=== PATIENT | female | born 1985 | race Caucasian/White ===

== ENCOUNTER 2019-11-25 09:11 | Emergency (ER) | payer BC, SELFPAY ==
--- NOTE | 2019-11-25 09:22 | ED.URI ---
HPI - URI/Sore Throat General Chief Complaint: Upper Respiratory Infection Stated Complaint: dixon/fever/chills/cough Time Seen by Provider: 11/25/19 09:23 Source: patient and RN notes reviewed History of Present Illness HPI Narrative: Patient is a 34-year-old female that presents the urgent care with complaints of headache, fever, chills, nonproductive cough. Patient states that her daughter is positive for influenza B and was diagnosed Tuesday. Patient states that her symptoms started last night. Patient has been using ibuprofen with last dose at 8 AM. No other acute complaints. No acute distress noted. Patient read the plan of care. Related Data Allergies Allergy/AdvReac Type Severity Reaction Status Date / Time No Known Allergies Allergy Unverified 11/25/19 09:24 Review of Systems Review of Systems: Narrative: CONSTITUTIONAL: Reports a fever, chills EYES: Denies visual changes, redness, or discharge. ENT: Reports of rhinorrhea and congestion CARDIOVASCULAR: Denies chest pain, palpitations, or edema. RESPIRATORY: Reports of nonproductive cough without dyspnea GASTROINTESTINAL: Denies abdominal pain, nausea, vomiting, or diarrhea. GENITOURINARY: Denies dysuria or hematuria. SKIN: Denies rash or itching. MUSCULOSKELETAL: Denies back pain, joint pain, or myalgia. NEUROLOGIC: Reports of headache All other systems reviewed are negative, except as documented in HPI. PMFSH Comments At the time of my signature, I reviewed and agree with the nursing past medical, surgical, social, and family history. There is no relevant family history pertinent to the patient complaint. Exam Narrative: Exam Narrative: GENERAL: This is a well-nourished, well-developed patient, appears slightly fatigued HEAD: normocephalic, atraumatic. EYES: PERRL. Sclera clear/white. Vision is grossly intact. EARS: External ears normal, auditory canals clear and without drainage, TMs normal without perforation. Hearing grossly intact. NOSE: External nose normal with no obvious nasal discharge, bilateral erythemic nares with clear to yellow rhinorrhea. THROAT: Mucous membranes moist, posterior pharynx clear. Mild postnasal drainage NECK: Neck supple, non-tender without lymphadenopathy, masses or thyromegaly. CARDIOVASCULAR: Regular rate and rhythm without murmurs, gallops, or rubs. RESPIRATORY: Clear to auscultation. Breath sounds equal bilaterally. No wheezes, rales, or rhonchi. SKIN: warm, intact with no suspicious lesions or rash, good texture and turgor. NEURO: awake, alert, and oriented to person, place and time. There were no obvious focal neurologic abnormalities. EXTREMITIES: No clubbing, cyanosis, or edema. Course Vital Signs Vital signs: Vital Signs Temperature 101.3 F H 11/25/19 09:25 Pulse Rate 98 11/25/19 09:25 Respiratory Rate 16 11/25/19 09:25 Blood Pressure 108/62 11/25/19 09:25 Pulse Oximetry 98 11/25/19 09:25 Temperature 101.3 F H 11/25/19 09:25 Pulse Rate 98 11/25/19 09:25 Respiratory Rate 16 11/25/19 09:25 Blood Pressure 108/62 11/25/19 09:25 Pulse Oximetry 98 11/25/19 09:25 Reviewed MDM - URI/Sore Throat MDM Narrative Medical decision making narrative: Reviewed lab results with the patient. She is aware that influenza swab was negative. However, with patient's daughter being positive for the flu and her having like symptoms with fever, patient would like to be treated. Advised her to complete the Xofluza as directed. Make sure to eat and drink with the medication. Treat symptoms with [id number] medication such as Robitussin/Delsym for cough, Claritin for allergy-like symptoms, Flonase for nasal congestion, Tylenol/Motrin for fever/body aches. Increase fluids, especially water and rest. Use a humidifier. Be aware of symptoms of dehydration such as lethargy, confusion, increased weakness, dry lips, dry eyes. Follow-up with PCP within 2-5 days or for worsening symptoms or failure to improve. Areli
[2019-11-25 09:25] VITALS: BP 108/62; PULSE 98; RESP 16; TEMP 38.5; O2SAT 98
== END 2019-11-25 09:55 | disposition home or self-care (01) ==
PROVIDERS: Emergency Provider Nurse Practitioner Family; PCP Physician Assistant
DX: J11.1 Influenza due to unidentified influenza virus with other respiratory manifestations (principal)
CPT/HCPCS: 87804; 99213; G0463

== ENCOUNTER 2025-02-14 12:59 | Outpatient (CLI) | payer OTHER, SELFPAY ==
--- NOTE | ~2025-02-14 | MM_ITS ---
EXAMINATION: MM screening nathanael BI w jose alejandro HISTORY: Screening TECHNIQUE: Craniocaudal and mediolateral oblique 3-D tomosynthesis images were obtained and synthetic 2-D images were generated. CAD analysis was submitted and interpreted. COMPARISON: No prior mammogram is available for comparison at this institution. BREAST PARENCHYMAL COMPOSITION: Dense: The breasts are extremely dense, which lowers the sensitivity of mammography. FINDINGS: There is no evidence of suspicious mass, calcification, or architectural distortion to sugg est malignancy in either breast. There has been no suspicious interval change. IMPRESSION: 1. No mammographic evidence of malignancy. 2. Recommend routine screening mammography in one year. BI-RADS Category 1: Negative Reviewed, dictated and finalized at location A.
--- OUTSIDE RECORDS SUMMARY | 2025-02-14 13:07 | XMS_ITS | Clinical Summary ---
Author Organization [facility] Address [address] [place] [phone] Care Team Providers Care Blueprint Engineer Name Role Phone Chela Hull Primary Care Provider [phone] Allergies No known active allergies Medications buPROPion XL (WELLBUTRIN XL) 150 mg 24 hr tablet 01/04/2023 Active Active Problems No known active problems Social History Tobacco Use Types Packs/Day Years Used Date Smoking Tobacco: Never Assessed Comments Unknown Sex and Gender Information Value Date Recorded Sex Assigned at Not on file Legal Sex Female 3:48 PM CDT Gender Identity Not on file Sexual Orientation Not on file Obstetrics History Last Filed Vital Signs Vital Sign Reading Time Taken Comments Blood Pressure 110/76 10/10/2023 11:57 AM MAKING MACHINE OPERATOR Pulse 77 10/10/2023 11:57 AM MAKING MACHINE OPERATOR Temperature 36.8 C (98.2 F) 10/10/2023 11:57 AM MAKING MACHINE OPERATOR Respiratory Rate 16 10/10/2023 11:57 AM MAKING MACHINE OPERATOR Oxygen Saturation 98% 10/10/2023 11:57 AM MAKING MACHINE OPERATOR Inhaled Oxygen Concentration - - Weight 64 kg (141 lb 3.2 oz) 10/10/2023 11:57 AM MAKING MACHINE OPERATOR Height 162.6 cm (5' 4.02 ) 10/10/2023 11:[address] Body Mass Index 24.22 10/10/2023 11:57 AM MAKING MACHINE OPERATOR Plan of Treatment Health Maintenance Due Date Last Done Comments Breast Cancer Screening-Mammogram 1984 Cervical Cancer Screening 1984 Depression Screening 1984 Hepatitis C Screening 1984 Varicella Vaccines (1 of 2 - 13+ 2-dose series) 1997 Hepatitis B Screening 2002 Regular Well Visit/Exam 18-64 2002 Covid-19 Vaccine ( season) 2024 08/02/2022, 11/13/2020, 10/24/2020 Influenza Vaccine (Season Ended) 2025 08/02/2022, 08/02/2022, 07/17/2021, Additional history exists DTaP/Tdap/Td Vaccine (3 - Td or Tdap) 03/28/2026 03/28/2016, 09/11/2013 HPV Vaccines Aged Out No longer eligi ble based on patient's age to complete this topic Pneumococcal vaccine <65 Aged Out No longer eligible based on patient's age to complete this topic Insurance [employer] HMO/PPO Address: [address] [address] [employer]/PPO Address: [facility] [address] [place] [address] Care Teams Blueprint Engineer Relationship Specialty [place] [address] [place] [address] PCP - General Physician Social Media Assistant 02/15/23
--- OUTSIDE RECORDS SUMMARY | 2025-02-14 13:07 | XMS_ITS | Clinical Summary ---
Author Organization [facility] [employer] Address [address] [place] [address] Care Team Providers Care Mechanical Fitter Name Role Phone Unavailable Primary Care Provider Unavailabl e Source Comments [facility] [employer],non-owned Affiliates and Associated Physician Practices is amultiple site organization consisting of ambulatory clinics and hospital sitesin [place], [place], [place] and [place]. This disclosure is being madepursuant to the Care Everywhere program and may not contain all information available regarding this patient. Last updated 18.[facility] [employer] Allergies No known active allergies Medications * Be aware that medications may not be up to date on this document. Alwaysverify current medications with the patient. BuPROPion HCl (WELLBUTRIN PO) Acti ve Social History Tobacco Use Types Packs/Day Years Used Date Smoking Tobacco: Former Smokeless Tobacco: Never Comments No Sex and Gender Information Value Date Recorded Sex Assigned at Not on file Legal Sex Female 7:53 AM CDT Gender Identity Not on file Sexual Orientation Not on file Last Filed Vital Signs Vital Sign Reading Time Taken Comments Blood Pressure 112/68 06/09/2018 10:36 AM CDT Pulse 84 06/09/2018 10:36 AM CDT Temperature 36.9 C (98.4 F) 06/09/2018 10:36 AM CDT Respiratory Rate 16 06/09/2018 10:36 AM CDT Oxygen Saturation 99% 06/09/2018 10:36 AM CDT Inhaled Oxygen Concentration - - Weight 61.2 kg (135 lb) 06/09/2018 10:36 AM CDT Height 157.5 cm (5' 2 ) 06/09/2018 10:36 AM CDT Body Mass Index 24.69 06/09/2018 10:36 AM CDT Plan of Treatment Health Maintenance Due Date Last Done Comments LIPID TESTING 1984 MAMMOGRAM 1984 HIV SCREENING 1999 HEPATITIS C SCREENING 10/25/2002 DTAP/TDAP/TD VACCINES (1 - Tdap) 2003 HEPATITIS B VACCINE (1 of 3 - 19+ 3-dose series) 2003 COVID-19 VACCINE (1 - 2023-2 5 season) 2024 DEPRESSION SCREENING 10/03/2024 INFLUENZA VACCINE (Season Ended) 2025 ZOSTER VACCINE (1 of 2) 2034 HIB VACCINE Aged Out No longer eligi ble based on patient's age to complete this topic HPV VACCINE Aged Out No longer eligi ble based on patient's age to complete this topic MENINGOCOCCAL (Group B) VACC INE SHARED DECISION-MAKING Aged Out No longer eligibl e based on patient's age to complete this topic MENINGOCOCCAL GROUPS A/C/Y/W VACCINE Aged Out No longer eligible b ased on patient's age to complete this topic PNEUMOCOCCAL VACCINE Aged Out No long er eligible based on patient's age to complete this topic Insurance
--- OUTSIDE RECORDS SUMMARY | 2025-02-14 13:07 | XMS_ITS | Encounter Summary ---
Author Organization [facility] Address [address] [place] [id number] Care Team Providers Care Forest Fire Management Officer Name Role Phone Chela Hull Primary Care Provider [phone] Encounter Details Date Type Department Care Team (Latest Contact Info) Description 01/21/2025 Results Follow-Up [facility] [id number] [place] [phone] [place] [id number] [place] [id number] CBC W/DIFF AUTOMATED, TSH W/REFLEX, COMPREHENSIVE METABOLIC PANEL, Additional followed-up results: 2 Social History Tobacco Use Types Packs/Day Years Used Date Smoking Tobacco: Former Cigarettes 0.5 5 0 01/18/2013 - 01/18/2018 Passive Smoke Exposure: Never Smokeless Tobacco: Never Alcohol Use Standard Drinks/Week Comments Yes 3.3 (1 standard drink = 0.6 oz p ure alcohol) Socially PHQ-2 Answer Date Recorded Patient Health Questionnaire-2 Score 0 01/17/2025 Comments No Sex and Gender Information Value Date Recorded Sex Assigned at Female 01/17/2025 8:24 AM CDT Legal Sex Female 8:55 AM GENERATOR REPAIRER Gender Identity Not on file Sexual Orientation Not on file documented as of this encounter Plan of Treatment Not on file documented as of this encounter Visit Diagnoses Not on filedocumented in this encounter Additional Health Concerns Assessment Noted Time PHQ-9 Depression Total Score: 0 04/13/20 21 9:39 AM CDT documented as of this encounter Care Teams Forest Fire Management Officer Relationship Specialty [place] [address] [place] [address] PCP - General PHYSICIAN KINESIOTHERAPIST 11/23/19 documented as of this encounter
--- OUTSIDE RECORDS SUMMARY | 2025-02-14 13:07 | XMS_ITS | Referral Summary ---
Author Organization [facility] Address [address] [place] [phone] Care Team Providers Care Flame Cutting Supervisor Name Role Phone Chela Hull Primary Care Provider [phone] Allergies No known active allergies Medications buPROPion [...] Comments Blood Pressure 110/76 10/10/2023 11:57 AM SENIOR STRATEGY ANALYST Pulse 77 10/10/2023 11:57 AM SENIOR STRATEGY ANALYST Temperature 36.8 C (98.2 F) 10/10/2023 11:57 AM SENIOR STRATEGY ANALYST Respiratory Rate 16 10/10/2023 11:57 AM SENIOR STRATEGY ANALYST Oxygen Saturation 98% 10/10/2023 11:57 AM SENIOR STRATEGY ANALYST Inhaled Oxygen Concentration - - Weight 64 kg (141 lb 3.2 oz) 10/10/2023 11:57 AM SENIOR STRATEGY ANALYST Height 162.6 cm (5' 4.02 ) 10/10/2023 11:[address] Body Mass Index 24.22 10/10/2023 11:57 AM SENIOR STRATEGY ANALYST Plan of Treatment Not on file Insurance [facility] [employer] [facility] [employer] H[employer]/PPO Address: [address] [facility] [employer]O Address: [place] [phone] Care Teams Flame Cutting Supervisor Relationship Specialty [place] [address] [address] PCP - General Physician Classification Clerk 02/15/23
--- OUTSIDE RECORDS SUMMARY | 2025-02-14 13:07 | XMS_ITS | Clinical Summary ---
Author Organization [facility] Address [address] [place] [address] Care Team Providers Care Water Filtration Technician Name Role Phone Chela Hull Primary Care Provider [phone] Allergies No known active allergies Medications fluconazole (DIFLUCAN) 150 MG tabletIndicati ons:Yeast infection Take one now and one in a week 2 tablet 4 01/18/20 25 Discontinued(T herapy completed) buPROPion XL (WELLBUTRIN XL) 150 MG 24 hr tabletIndicati ons:Anxiety Take 1 tablet (150 mg total) by mouth daily. 90 tablet 4 01/18/20 25 Discontinued(P t. elected to discontinue med) Active Problems No known active problems Encounters Date Type Department Care Team Description 01/21/2025 Results Follow-Up [facility] [address] [address] Chela Hull, PA CBC W/DIFF AUTOMATED, TSH W/REFLEX, COMPREHENSIVE METABOLIC PANEL, Additional followed-up results: 2 01/17/2025 9:40 AM CDT Laboratory Only [facility] [address] [address] Chela Hull PA 01/17/2025 9:00 AM CDT Office Visit [facility] [address] [address] Chela Hull, PA Printing Roller Polisher Exam 01/17/2025 Travel from Last 3 Months Immunizations Immunization Administration Dates Next Due Influenza (Generic) 07/17/2021 Influenza Adult (Generic) 08/02/2022,08/01/2020, 08/03/2013 Tdap (Generic) 03/28/2016,09/11/2013 Family History Medical History Relation Comments No Known Problems Father Breast Cancer Maternal Aunt No Known Problems Mother Relation Status Comments Father Alive Maternal Aunt Mother Alive Social History Tobacco Use Types Packs/Day Years Used Date Smoking Tobacco: Former Cigarettes 0.5 5 0 01/18/2013 - 01/18/2018 Passive Smoke Exposure: Never Smokeless Tobacco: Never Tobacco Cessation:Counseling Given: No Alcohol Use Standard Drinks/Week Comments Yes 3.3 (1 standard drink = 0.6 oz p ure alcohol) Socially PHQ-2 Answer Date Recorded Patient Health Questionnaire-2 Score 0 01/17/2025 Comments No Sex and Gender Information Value Date Recorded Sex Assigned at Female 01/17/2025 8:24 AM CDT Legal Sex Female 8:55 AM FELT HAT MELLOWING MACHINE OPERATOR Gender Identity Not on file Sexual Orientation Not on file Last Filed Vital Signs Vital Sign Reading Time Taken Comments Blood Pressure 127/79 01/17/2025 8:27 AM CDT Pulse 82 01/17/2025 8:27 AM CDT Temperature 36.7 C (98 F) 01/17/2025 8:27 AM CDT Respiratory Rate 16 01/17/2025 8:27 AM CDT Oxygen Saturation 100% 01/17/2025 8:27 AM CDT Inhaled Oxygen Concentration - - Weight 64 kg (141 lb) 01/17/2025 8:27 AM CDT Height 160 cm (5' 3 ) 01/17/2025 8:27 AM CDT Body Mass Index 24.98 01/17/2025 8:27 AM CDT Plan of Treatment Health Maintenance Due Date Last Done Comments Hepatitis B Vaccines (1 of 3 - 19+ 3-dose series) 2003 COVID-19 Vaccine (2 - season) 2024 08/02/2022 Mammogram Screening 2024 Annual Physical 01/17/2026 01/17/2025, 04/01/2023, 04/13/2021, Additional history exists DTaP, Tdap and Td Vaccines (3 - Td or Tdap) 03/28/2026 03/28/2016, 09/11/2013 Cervical Cancer Screening Pap Smear (Age 30 to 64) Every 3 Years 01/18/2028 01/17/2025, 01/04/2023, 04/13/2021, Additional history exists Cervical Cancer Screening Pap with HPV Testing (Age 30 to 64) Every 5 Years 01/17/2030 01/17/2025, 01/04/2023, 04/13/2021 Cervical Cancer Screening with HPV 01/17/2030 Hepatitis C 01/04/2053 Postponed from 2002 (Patient Refused) PHQ-2 (Physician Carmine) Completed 01/17/2025 HPV Vaccines Aged Out No longer eligi ble based on patient's age to complete this topic Meningococcal B Vaccine Aged Out No l onger eligible based on patient's age to complete this topic Meningococcal Vaccine Aged Out No maryuri smita eligible based on patient's age to complete this topic Pneumococcal Vaccine: Pediatrics (0 to 5 Years) and At-Risk Patients (6 to 49 Years) Aged Out No longer eligible based on patient's age to complete this topic RSV Immunizations Under 20 Months Aged Out No longer eligible based on patient's age to complete this topic Procedures Procedure Name Priority Date/Time Associated Diagnosis Comments THINPREP PAP W AGE BASED SCREENING PROTOCOLS Routine 01/17/2025 9:10 AM CDT Cervical cancer screening COLLECTION VENOUS BLOOD VENIPUNCTURE Routine 01/17/2025 9:07 AM CDT Routine general medical examination at a health care facility LIPID PANEL Routine 01/17/2025 9:06 AM CDT Routine general medical examination at a health care facility COMPREHENSIVE METABOLIC PANEL Routine 01/17/2025 9:06 AM CDT Routine general medical examination at a health care facility TSH W/REFLEX Routine 01/17/2025 9:06 AM CDT Routine general medical examination at a health care facility CBC W/DIFF AUTOMATED Routine 01/17/2025 9:06 AM CDT Routine general medical examination at a health care facility from Last 3 Months Results * THINPREP PAP W AGE BASED SCREENING ([facility] ONLY) (01/17/2025 9:10 AM CDT) Comment: [facility] [employer] Comment: This order for age-based cervical cancer and STI screening follows ACOG guidelines(PB 168, 140, LTR868). See individual assays for performing site location. CLINICAL INFORMATION: UNK [facility] [employer] Clinical Information: NO MENSES DUE TO IUD [facility] [employer] [facility] Date of Last Pap NONE GIVEN QU [facility] Previous Biopsy? NONE GIVEN [employer] [employer] SOURCE (QST) Cervix [facility] [employer] [facility] STATEMENT OF ADEQUACY: [facility] [employer] Comment: Satisfactory for evaluation. Endocervical/transformation zone component absent. PAP INTERPRETATION/RES ULTS Cytology Results: Negative for intraepithelial lesion or malignancy. [place] COMMENT: This Pap test has been evaluated with computer assisted technology. [place], [place] LEGAL CONTRACTS SPECIALIST [facility] [place] Comment: MVB, CT(ASCP) CT Screening Location: [place] [address] [place] [address] COMMENT: [facility] [employer] Comment: EXPLANATORY NOTE: The Pap is a screening test for cervical cancer. It is not a diagnostic test and is subject to false negative and false positive results. It is most reliable when a satisfactory sample, regularly obtained, is submitted with relevant clinical findings and history, and when the Pap result is evaluated along with historic and current clinical information. HPV MRNA E6/E7 Not Detected Not Detected [facility] Comment: Methodology: Material Stress Tester-Mediated Amplification This assay detects E6/E7 viral messenger RNA (mRNA) from 14 high-risk HPV types (16,18,31,33,35,39,45,51,52,56,58,59,66,68). Cervical sources are required for HPV testing. If a vaginal source from a patient who has had a total hysterectomy with removal of cervix was submitted, please contact the testing laboratory for alternative testing options. For additional information, please refer to http://education.STORYS.JP/faq/SYO698c2 (This link if provided for information/ educational purposes only.) 01/17/2025 9:10 AM CDT 01/18/2025 8:42 PM CDT Narrative Resulting Agency Comment Performing Organization Information: Site ID: [place] Name: [facility] Address: [address] [place] [id number] Director: Lucien Camara Site ID: [id number] [facility]: [facility] Address: [address] [place] [address] [place] [address] Director: Esa Watson Chela SEP[facility] PATHOLOGY/CYTOLOGY ORDERABLE S Final Result [facility] [address], [facility] [address] [address], [place] * TSH W/REFLEX (01/17/2025 9:06 AM CDT) TSH 0.94 mIU/L [facility] [employer] [facility] Comment: Reference Range > or = 20 Years 0.40-4.50 Ranges First trimester 0.26-2.66 Second trimester 0.55-2.73 Third trimester 0.43-2.91 01/17/2025 9:06 AM CDT 01/18/2025 3:14 AM CDT Narrative Resulting Agency Comment Performing Organization Information: Site ID: [place] Name: [facility] Address: [address] [place] [address] Director: Esa Watson Cehla [facility] Final Result [facility] [place] [place] [id number] [place] [id number], [place] * COMPREHENSIVE METABOLIC PANEL (01/17/2025 9:06 AM CDT) GLUCOSE 85 65 - 99 mg/dL [facility] [employer] [facility] Comment: Fasting reference interval BUN 12 7 - 25 mg/dL [facility] [employer] [facility] CREATININE S/P/B 0.78 0.50 - 0.99 mg/dL [place] GFR ESTIMATE 98 > OR = 60 mL/min/1. 73m2 [place] BUN CREATININE RATIO SEE NOTE: 6 - 22 (calc) [place] Comment: Not Reported: BUN and Creatinine are within reference range. SODIUM S/P/B 139 135 - 146 mmol/L [place] POTASSIUM S/P/B 4.5 3.5 - 5.3 mmol/L [place] CHLORIDE S/P/B 105 98 - 110 mmol/L [place] CO2 25 20 - 32 mmol/L [place] CALCIUM S/P/B 9.4 8.6 - 10.2 mg/dL [place] TOTAL PROTEIN S/P/B 7.2 6.1 - 8.1 g/dL [place] ALBUMIN S/P/B 4.7 3.6 - 5.1 g/dL [place] GLOBULIN 2.5 1.9 - 3.7 g/dL (calc) [place] ALBUMIN/GLOBULIN RATIO 1.9 1.0 - 2.5 (calc) [place] BILIRUBIN TOTAL S/P/B 0.5 0.2 - 1.2 mg/dL [place] ALKALINE PHOSPHATASE S/P/B 43 31 - 125 U/L [place] AST 15 10 - 30 U/L [place] ALT 16 6 - 29 U/L [place] 01/17/2025 9:06 AM CDT 01/18/2025 3:14 AM CDT Narrative Resulting Agency Comment Performing Organization Information: Site ID: [place] Name: [facility] Address: [address] [place] [address] Director: Esa Watson Chela [facility] Final Result [facility] [employer] [facility] - [place] [address], * (ABNORMAL) LIPID PANEL (01/17/2025 9:06 AM CDT) Pathologist [facility] CHOLESTEROL 203(H) <200 mg/dL [place] HDL 71 > OR = 50 mg/dL [place] TRIGLYCERIDES 67 <150 mg/dL [place] LDL (CALCULATED) 116(H) mg/dL (calc) [place] Comment: Reference range: <100 Desirable range <100 mg/dL for primary prevention; <70 mg/dL for patients with CHD or diabetic patients with > or = 2 CHD risk factors. LDL-C is now calculated using the Vaishnavi calculation, which is a validated novel method providing better accuracy than the Friedewald equation in the estimation of LDL-C. Flynn CAMACHO et al. SASHA. 2013;310(19): 7399-4180 (http://education.Kaboo Cloud Camera/faq/GQS913) CHOL/HDL RATIO 2.9 <5.0 (calc) [place] NON HDL CHOLESTEROL 132(H) <130 mg/dL (calc) [place] Comment: For patients with diabetes plus 1 major ASCVD risk factor, treating to a non-HDL-C goal of <100 mg/dL (LDL-C of <70 mg/dL) is considered a therapeutic option. 01/17/2025 9:06 AM CDT 01/18/2025 3:14 AM CDT Narrative Resulting Agency Comment Performing Organization Information: Site ID: [place] Name: [facility] Address: [address] [place] [address] [place] [address] Director: Esa Watson Chela [facility] Final Result [facility] - [place] [address], * (ABNORMAL) CBC W/DIFF AUTOMATED (01/17/2025 9:06 AM CDT) [facility] WBC 6.9 3.8 - 10.8 Thousand/u L [place] RBC 5.09 3.80 - 5.10 Million/uL [place] HGB 14.0 11.7 - 15.5 g/dL [place] HCT 45.3(H) 35.0 - 45.0 % [place] MCV 89.0 80.0 - 100.0 fL [place] MCH 27.5 27.0 - 33.0 pg [place] MCHC 30.9(L) 32.0 - 36.0 g/dL [place] Comment: For adults, a slight decrease in the calculated MCHC value (in the range of 30 to 32 g/dL) is most likely not clinically significant; however, it should be interpreted with caution in correlation with other red cell parameters and the patient's clinical condition. RDW 11.8 11.0 - 15.0 % [place] PLT 265 140 - 400 Thousand/u L [place] MPV 10.5 7.5 - 12.5 fL [place] ABS. NEUTROPHILS 3,802 1,500 - 7,800 cells/uL [place] ABS. LYMPHOCYTES 2,512 850 - 3,900 cells/uL [place] ABS. MONOCYTES 442 200 - 950 cells/uL [place] ABS. EOSINOPHILS 104 15 - 500 cells/uL [place] ABS. BASOPHILS 41 0 - 200 cells/uL [place] SEG NEUTROPHILS 55.1 % [facility] [place] [facility] LYMPHOCYTES 36.4 % [place] MONOCYTES 6.4 % [place] EOSINOPHILS 1.5 % [place] BASOPHILS 0.6 % [place] 01/17/2025 9:06 AM CDT 01/18/2025 3:14 AM CDT Narrative Resulting Agency Comment Performing Organization Information: Site ID: [id number] Name: [facility] Address: [address] [place] [address] Director: Esa Watson Chela [facility] Final Result [facility] [place] [address] [place] [address], [place] from Last 3 Months Insurance [facility] Care Teams Water Filtration Technician Relationship Specialty [place] [address] [place] [address] PCP - General PHYSICIAN BRAZER HELPER INDUCTION 11/23/19
== END 2025-02-14 13:00 | disposition home or self-care (01) ==
LOC: ANHIMG 13:01
PROVIDERS: PCP Physician Assistant; Visit Provider Physician Assistant
DX: Z12.31 Encounter for screening mammogram for malignant neoplasm of breast (principal)
CPT/HCPCS: 77063; 77067